=== PATIENT | male | born 1965 | race Caucasian/White ===

== ENCOUNTER 2016-11-14 00:39 | Emergency (ER) | payer OTHER ==
[~2016-11-14] VITALS: Ht 195.6 cm; Wt 118.0 kg
[~2016-11-14 00:39] MED LIST: ALBU18HF INH; ALPR0.25 PO; GABA-826 PO; LEVO25TA4 PO; OXYC15TA PO; TAMS-11 PO; TRAZ50TA18 PO; [UNRECOGNIZED DRUG - REMARK]
[2016-11-14] MEDS ORDERED: MORPHINE SULFATE 4 MG/ML, 1ML ONE (01:05)
[2016-11-14] MEDS ORDERED: ONDANSETRON 2MG/ML, 2ML ONE (01:05)
[2016-11-14] MEDS ORDERED: SODIUM CHLORIDE 0.9% 1,000ML IVBOLUS ONE (01:30)
[2016-11-14] MEDS ORDERED: MORPHINE SULFATE 4 MG/ML, 1ML IVPush PRN (01:30)
[2016-11-14] MEDS ORDERED: ONDANSETRON 2MG/ML, 2ML IVPush ONE (01:30)
[2016-11-14] MEDS ORDERED: SODIUM CHLORIDE FLUSH 10ML SYR IVF ONE (01:30)
[2016-11-14 01:38] LABS: BLOOD UREA NITROGEN 14 mg/dL (7-18)
[2016-11-14] MEDS ORDERED: OMNIPAQUE 350 MG/ML, 100ML BOTTLE ONE (02:23)
[2016-11-14 03:30] VITALS: BP 119/60
[2016-11-14] MEDS ORDERED: VANCOMYCIN PER PHARMACY MC ONE (03:30)
[2016-11-14] MEDS ORDERED: VANCOMYCIN 2,500 MG in SODIUM CHLORIDE 0.9% 500 ML IV ONE (03:30)
[2016-11-14] MEDS ORDERED: PIPERACILLIN/TAZO/PMX 3.375GM 50 ML IVPB ONE (03:30)
== END 2016-11-14 03:37 | disposition home or self-care (01) ==
LOC: ED 02:12
DX: L02.215 Cutaneous abscess of perineum (principal); F17.200 Nicotine dependence, unspecified, uncomplicated
CPT/HCPCS: 36415; 72193; 80048; 82040; 85025; 96361; 96374; 96375; 99285; J2405; J7030; Q9967

== ENCOUNTER 2017-10-27 07:53 | Emergency (ER) | payer MEDICAID, OTHER ==
[~2017-10-27] VITALS: Ht 182.9 cm; Wt 124.6 kg
[2017-10-27 07:55] VITALS: BP 146/99
[2017-10-27] MEDS ORDERED: LIDOCAINE-MPF 1%, 2ML ONE (08:18)
[2017-10-27] MEDS ORDERED: LIDOCAINE-MPF 1%, 5ML INFIL ONE (08:30)
[2017-10-27] MEDS ORDERED: AMOXICILLIN/CLAV 875-125MG TABLET ONE (08:43)
[2017-10-27] MEDS ORDERED: AMOXICILLIN/CLAV 875-125MG TABLET PO ONE (09:00)
== END 2017-10-27 09:01 | disposition home or self-care (01) ==
LOC: ED 08:59
DX: L02.215 Cutaneous abscess of perineum (principal); F17.200 Nicotine dependence, unspecified, uncomplicated
CPT/HCPCS: 10060; 56405; 99283; 99284

== ENCOUNTER 2017-10-27 19:37 | Emergency (ER) | payer MEDICAID ==
[~2017-10-27] VITALS: Ht 182.9 cm; Wt 80.5 kg
[2017-10-27 19:40] VITALS: BP 168/97
== END 2017-10-27 20:14 | disposition home or self-care (01) ==
LOC: ED 20:12
DX: Z48.01 Encounter for change or removal of surgical wound dressing (principal)
CPT/HCPCS: 99281

== ENCOUNTER 2018-03-24 10:05 | Emergency (ER) | payer MEDICAID ==
[~2018-03-24] VITALS: Ht 182.9 cm; Wt 118.3 kg
[~2018-03-24 10:05] MED LIST changes: -TRAZ50TA18 PO; +TRAZ50TA66 PO
[2018-03-24 13:18] VITALS: BP 116/55
[2018-03-24] MEDS ORDERED: LIDOCAINE-MPF 1%, 5ML ONE (14:58)
== END 2018-03-24 16:39 | disposition home or self-care (01) ==
LOC: ED 10:48
DX: L02.215 Cutaneous abscess of perineum (principal)
CPT/HCPCS: 10060; 76857; 99284